=== PATIENT | male | born 1950 | race Caucasian/White ===

== ENCOUNTER 2016-11-15 09:15 | Inpatient (IN) | payer BC ==
--- NOTE | 2016-11-01 22:04 | HP ---
CC: Uvaldo Holman MD; Ernesto Ramírez MD; Lane Mattson MD ADMISSION HISTORY AND PHYSICAL: DATE OF ADMISSION: 11/15/16 ATTENDING SURGEON: Ajith Francis MD CHIEF COMPLAINT: Colon polyp. HISTORY OF PRESENT ILLNESS: This is a 65, soon to be 66-year-old male who underwent routine screeni ng colonoscopy on 09/19/[address] Ramírez. Findings at that time included a polyp at the hepatic flexure as well as one at 40 cm from the anal verge. Both of these were removed by biopsy forceps a nd pathology showed tubular adenoma. There was a third polyp estimated at 60 cm, which was biopsied , but could not be removed entirely with the colonoscope. Biopsy also showed tubular adenoma. The polyp was tattooed and the patient was sent for surgical referral. He was referred for a surgical co nsult. The patient has had other prior colonoscopies with polypectomies, the most recent being 5 to 6 years prior. He had no interval change in bowel habits and specifically denies blood per rectum or any other changes in the stool. He was seen in the office by Dr. Francis on 09/30/16. Dr. Pedro leon has discussed with him the indications for surgery, the risks, benefit, and alternatives. The pat ient elected to proceed as scheduled with laparoscopic- assisted transverse colon polypectomy; possi ble partial colectomy. The patient was seen recently by his primary, Dr. Holman, on 10/28/16 and lab work done at that time which included a CMP and CBC that were essentially within normal limits. The patient is scheduled for annual check with Dr. Mattson on 11/04/16 and he will discuss with him h is upcoming surgery. See also below for medications. PAST MEDICAL HISTORY: Chronic atrial fibrillation, hypertension, hyperlipidemia, BPH, and obesity. He denies history of AK or angina, diabetes, or personal history of bleeding or clotting disorders. No chronic respiratory problems. PAST SURGICAL HISTORY: Previous surgery is limited to vocal cord polypectomy and colonoscopies with polypectomy. CURRENT MEDICATIONS: 1. Pradaxa 150 mg b.i.d. (unless otherwise directed by Dr. Mattson, the patient's last dose preoperat ively will be the morning of 11/13/16; he has never required bridging in the past). 2. Diltiazem extended release 180 mg once daily. 3. Atorvastatin 10 mg once daily. DRUG ALLERGIES: None known. FAMILY HISTORY: Noncontributory in terms of anesthesia problems, bleeding, or clotting disorders SOCIAL HISTORY: The patient is . He is a retired donnelly. He is moderately active and wa lks with dog 2 miles daily. He is a former smoker, 1 pack per day for approximately 35 years and qu it 10 years ago. He has not had any alcohol in the past 20 years. He denies any other recreational drug use. REVIEW OF SYSTEMS: General: No recent constitutional symptoms. Weight has been stable. HEENT: N o problems reported. No history of cataracts or glaucoma. He is in the midst of crown, been to Dr. Rodriguez, has a temporary crown placed at the present time. Cardiovascular: As above. His atr ial fibrillation is intermittent. He has an appointment scheduled with Dr. Mattson for 11/04/16. Resp iratory: No acute problems reported in terms of shortness of breath and chronic cough. He is under an annual low-dose chest CT screen program and is following a stable 5 mm left upper lobe nodule. GI: No upper GI symptoms. Otherwise, per the HPI. : He is followed annually by Dr. Zamora and does have some BPH with no interval problems reported. Endocrine: No diabetes or thyroid dysfunct ion. Musculoskeletal: No problems reported. Neurological: No problems reported. PHYSICAL EXAMINATION GENERAL: A well-nourished, mildly obese male, in no acute distress. VITAL SIGNS: Height 73.5 inches, weight 242 pounds, BMI 31.5. Other vital signs per nursing. HEENT: Pupils are equal, round, and reactive. EOMs are intact. No conjunctival pallor. Oropharyn x: Teeth in good repair. No intraoral lesions. NECK: No lymphadenopathy, thyromegaly, or masses. LUNGS: Clear to auscultation. No rales or wheezes. HEART: Irregularly irregular consistent with Afib. No murmur noted. ABDOMEN: Soft and nontender to palpation. No palpable masses or organomegaly. EXTREMITIES: No edema. GENITALIA AND RECTAL: Not repeated (done recently). BACK: No spinous process or CVA tenderness. NEUROLOGIC: Grossly intact. SKIN: Warm and dry. No suspicious rashes or lesions. IMPRESSION: Transverse colon polyp. PLAN: Laparoscopic-assisted transverse colon polypectomy; possible partial colectomy. PENNY LISA [id number]/[facility] #: [id number]
[~2016-11-15 09:15] MED LIST: ERTApenem(*) 1 GM in NS 0.9% 50 ML* 50 ML IVPB SCH; Famotidine IV* 10 MG/ML 2 ML (20 mg) IV ONE; Morphine INJ* 2 MG/ML 1 ML SYRINGE IV PRN; PROCHLORPERAZINE INJ 5 MG/ML 2 ML VIAL IV PRN; Scopolamine 1.5 mg* PATCH TRANSDERM PRN; fentaNYL* 50 MCG/ML 2 ML VIAL (100 MCG VIAL) IV PRN
[2016-11-15] MEDS ORDERED: fentaNYL* 50 MCG/ML 5 ML VIAL (250 MCG VIAL) ONE (11:49)
[2016-11-15] MEDS ORDERED: KETAMINE HCL* 50 MG/ML 10 ML VIAL ONE (11:50)
[2016-11-15] MEDS ORDERED: Atracurium* 10 MG/ML 10 ML VIAL ONE (11:50)
[2016-11-15] MEDS ORDERED: Midazolam* 1 MG/ML 5 ML VIAL (5 MG) ONE (11:50)
[2016-11-15] MEDS ORDERED: Famotidine IV* 10 MG/ML 2 ML (20 mg) ONE (12:09)
[2016-11-15] MEDS ORDERED: Buffered Lidocaine 1% SYRIN* 5 ML/SYR SYRINGE ONE (12:09)
[2016-11-15] MEDS ORDERED: Bupivacaine 0.5% W/EPI SDV* 30 ML VIAL ONE (12:57)
[2016-11-15] MEDS ORDERED: Diltiazem IV* 5 MG/ML 5 ML VIAL (for loading dose/IV Push) (25 MG) ONE (13:29)
[2016-11-15] MEDS ORDERED: Propofol* 10 MG/ML 20 ML BTL IV PUSH ONE ×2 (14:39→15:43)
[2016-11-15] MEDS ORDERED: Neostigmine Methylsulfate* 2 MG/2 ML SYRINGE ONE (14:39)
[2016-11-15] MEDS ORDERED: Lidocaine 2% PF * 5 ML VIAL ONE (14:39)
[2016-11-15] MEDS ORDERED: Glycopyrrolate IV* 0.2 MG/ML 1 ML VIAL ONE (14:39)
[2016-11-15] MEDS ORDERED: Ondansetron INJ* 2 MG/ML VIAL ONE ×2 (14:39→18:19)
[2016-11-15] MEDS ORDERED: Dexamethasone IV* 4 MG/ML 1 ML (4 MG) ONE (14:39)
[2016-11-15] MEDS ORDERED: Morphine INJ* 10 MG/ML 1 ML SYRINGE ONE (14:40)
[2016-11-15] MEDS ORDERED: hydrALAZINE IV* 20 MG/ML VIAL ONE (15:32)
[2016-11-15] MEDS ORDERED: fentaNYL* 50 MCG/ML 2 ML VIAL (100 MCG VIAL) ONE ×2 (15:43→16:47)
[2016-11-15] MEDS ORDERED: Ondansetron INJ* 2 MG/ML VIAL IV PRN (15:55)
[2016-11-15] MEDS ORDERED: HYDROmorphone* 1 MG/ML 1 ML SYR IV PRN (15:55)
[2016-11-15] MEDS ORDERED: oxyCODONE/Acetamin 5/325 MG* TAB PO PRN (15:55)
[2016-11-15] MEDS ORDERED: Acetaminophen TAB* 325 MG PO PRN (15:55)
--- NOTE | 2016-11-15 16:04 | PN ---
Progress Note - Progress Note Note: Brief surgical note: Pre-op: Transverse colon mass Post-op: same Procedure: Laparoscopic assisted wedge resection of transverse colon Surgeon: Dr. trevizo Player Piano Technician: Samina Xiong Shahida: SHANTHI EBL: Minimal Catheter: Rizo to gravity, d/c'ed at PACU Drains: None Specimen: Transverse colon polyp Fluids: LR 2000 cc Findings: See dictated op note
[2016-11-15] MEDS: Atorvastatin* 10 MG TAB PO SCH (20:59)
--- NOTE | 2016-11-16 05:04 | OP ---
OPERATIVE REPORT: DATE OF OPERATION: 11/15/16 - inpatient room #332-01 DATE OF : 52 SURGEON: Ajith Francis MD GRAVITY FLOW IRRIGATOR: PENNY Madden ANESTHESIOLOGIST: Murray Dailey MD ANESTHESIA: General endotracheal. PRE-OP DIAGNOSIS: Transverse colon polyp. POST-OP DIAGNOSIS: Transverse colon polyp. OPERATIVE PROCEDURE: Laparoscopic-assisted wedge resection of transverse colon. ESTIMATED BLOOD LOSS: Minimal. IV FLUIDS: Crystalloid. SPECIMEN: Transverse colon polyp. DRAINS: None. COMPLICATIONS: None. COUNTS: Instrument, needle, and sponge counts were correct. DESCRIPTION OF PROCEDURE: The patient was brought to the operating room and placed on the table supine. Sequential compression devices were placed on both lower extremities and general anesthesia was administered. Rizo catheter was placed. He was positioned and padded appropriately. He received appropriate intravenous antibiotics. His abdomen was prepped and draped in the usual sterile fashion and time-out was performed. Local anesthetic was infiltrated into the skin and soft tissue prior to making each incision. Entry to the abdomen was through a left upper quadrant incision accommodating a 5-mm optical trocar. After accessing the peritoneal cavity, carbon dioxide was insufflated to a pressure of 15 mmHg. Under direct visualization, 12- mm trocars were placed in the supraumbilical midline, 5-mm trocar was placed in the right upper quadrant. Inspection with the laparoscope revealed a large amount of intraperitoneal fat with initially no evidence of tattooing seen along the transverse colon. Adhesions were taken down on the left side near the splenic flexure in order to identify tattooing, but none was identified in that area. The hepatic flexure was then next addressed and in this site, there appeared to be some faint tattooing visible. A third 5-mm trocar was placed in the midline in the lower abdomen and then mobilization of the hepatic flexure was undertaken, dividing the gastrocolic ligament and omentum and dissection proceeded proximally to the hepatic flexure, which was entirely taken down. The dissection then proceeded also from the ileocecal region distally in this manner completely freeing the right colon, so it was mobilized to the midline with preservation of the duodenum. Subsequently, the midline incision was extended around the umbilicus and superiorly in order to create an incision about 7 cm long. The Arnel retractor was then placed and the bowel was exteriorized. There was a palpable mass in the area of visible tattoo, which was selected as the site for the colotomy, which was created in a longitudinal direction with cautery. A polyp was immediately visible and it was excised full-thickness portion of the colon wall wedging it out. To close the colotomy, two firings of the TA-60 blue stapler were used pointing them so as not to impinge upon the lumen. The staple lines were oversewn with 3-0 Polysorb and the crossing staple line was oversewn with 3-0 silk as well to imbricate it. Having assured hemostasis, the colon was returned to the abdominal cavity and the inspection revealed hemostasis to be excellent. The midline wound was closed with #1 Polysorb running and subcutaneous tissues were irrigated. All the skin incisions were closed with ricco and dressings were applied. The patient tolerated this procedure well, was extubated, and then transferred to the recovery room in stable condition. CC: Uvaldo Holman MD; Ernesto Ramírez MD; Lane Mattson MD* [id number]/[facility] #: [id number] [facility]
[2016-11-16 06:09] LABS: Hematocrit 46 % (42-52); Hemoglobin 15.5 g/dl (14.0-18.0); Mean Corpuscular HGB Conc 34 g/dl (31-36); Mean Corpuscular Hemoglobin 30 pg (27-31); Mean Corpuscular Volume 88 fL (80-94); Mean Platelet Volume 8 um3 (7.4-10.4); Red Blood Count 5.21 10^6/ul (4.0-5.4); Red Cell Distribution Width 13 % (10.5-15); White Blood Count 14.6 10^3/ul (3.5-10.8)
[2016-11-16 06:22] LABS: Calcium 9.1 mg/dL (8.6-10.3); EGFR African American 116.3 (>60); EGFR Non-African American 90.5 (>60); Potassium 3.9 mmol/L (3.5-5.0)
[2016-11-16] MEDS: Diltiazem CD CAP* 180 MG PO SCH (09:30)
--- NOTE | 2016-11-16 10:01 | SURGPN ---
Subjective - Introduction -: Doing very well, minimal pain, did not take any pain meds overnight. Nausea and vomiting last night, no nausea this AM. Ambulatory, tolerating clear liquids. No flatus yet. - Medications -: Active Medications Generic Name Dose Route Start Last Admin Trade Name Freq PRN Reason Stop Dose Admin Acetaminophen 650 mg 11/15/16 15:55 Tylenol Tab* PO Q4H PRN Pain Or Temperature >101 F Atorvastatin Calcium 10 mg 11/15/16 21:00 11/15/16 20:59 Lipitor* PO 10 mg 2100 JEFFERSON Administration Diltiazem HCl 180 mg 11/16/16 09:00 11/16/16 09:30 Cardizem Cd Cap* PO 180 mg QAM JEFFERSON Administration Heparin Sodium (Porcine) 5,000 units 11/16/16 16:00 Heparin Vial(*) SUBCUT Q8HR JEFFERSON Hydromorphone HCl 0.5 mg 11/15/16 15:55 Dilaudid Iv* IV Q1H PRN PAIN - SEVERE Lactated Ringer's 1,000 mls @ 125 mls/hr 11/15/16 16:00 11/16/16 02:23 Lactated Ringers 1000 Ml Bag* IV 125 mls/hr .per rate JEFFERSON Administration Ondansetron HCl 4 mg 11/15/16 15:55 Zofran Inj* IV Q4H PRN NAUSEA/VOMITING Oxycodone/Acetaminophen 2 tab 11/15/16 15:55 Percocet 5/325 Tab* PO Q6H PRN PAIN Pharmacy Profile Note 1 note 11/18/16 08:39 Scopolomine Patch Remove* PATCH OFF 11/18/16 08:40 Q72H ONE Objective - Objective -: Awake and alert, sitting in chair, appears comfortable and in NAD. - Intake and Output -: Intake & Output 11/14/16 11/15/16 11/16/16 11/17/16 06:59 06:59 06:59 06:59 Intake Total 4086 Output Total 1250 Balance 2836 Weight 247 lb Intake: IV Fluids 3646 LR 3596 NS 50ML, Ertopenin 1G 50 Oral 440 Output: Urine 600 Rizo 650 Surgical Physical Exam - Comments -: VSS, afebrile Lungs CTA bilat. Heart RRR, no murmurs. Abdomen soft, non-tender and mildly distended. Dressing clean and dry. Bowel sounds hypoactive throughout. Ext. no edema Labs noted Assessment and Plan - Assessment -: A 66 y/o male, POD#1, s/p laparoscopic assisted wedge resection of transverse colon, doing well. - Plan Additional Comments: Ambulate as tolerated Keep on clear liquids diet for now. DVT prophylaxis, start Heparin this afternoon. Post-op ileus, await bowel functions.
[2016-11-16] MEDS ORDERED: Heparin VIAL(*) 5000 UNITS/ML VIAL (FIVE THOUSAND) SUBCUT SCH (16:00)
[2016-11-16] MEDS: Atorvastatin* 10 MG TAB PO SCH (20:47)
[2016-11-16] MEDS: Heparin VIAL(*) 5000 UNITS/ML VIAL (FIVE THOUSAND) SUBCUT SCH (23:26)
[2016-11-17] MEDS: Diltiazem CD CAP* 180 MG PO SCH (07:58)
[2016-11-17] MEDS: Heparin VIAL(*) 5000 UNITS/ML VIAL (FIVE THOUSAND) SUBCUT SCH (07:58)
[2016-11-17 08:24] VITALS: BP 140/78
--- NOTE | 2016-11-17 10:31 | PN ---
Progress Note - Progress Note SOAP: Subjective: Reports doing very well. Tolerating full liquids, passing flatus and had a small BM last night. Denies any pain, N/V, fever or chills. Would like to go home today. Objective: Awake and alert, changing his cloth, very comfortable. VSS, afebrile Lungs CTA bilat. Heart RRR, no mrmurs. Abdomen soft, NT/ND. Incisions C/D/I. I/O noted Assessment: A 66 y/o male, POD#2, s/p laparoscopic assisted wedge resection of transverse colon for a benign tubular adenoma. Plan: Patient is doing very well, discussed path report with him. Will advance diet gradually at home. Plan to d/c to home later this AM F/U next week in office for stable removal.
--- NOTE | 2016-11-17 23:32 | DS ---
DISCHARGE SUMMARY: DATE OF ADMISSION: 11/15/16 DATE OF DISCHARGE: 11/17/16 PATIENT OF: Ajith Francis MD ADMISSION DIAGNOSIS: A colon polyp. DISCHARGE DIAGNOSIS: A colon polyp. ADMITTING PHYSICIAN: Ajith Francis MD CONSULTATIONS: None. PROCEDURE: Laparoscopic-assisted wedge resection of the transverse colon on . HISTORY OF PRESENT ILLNESS: Mr. Bran is a pleasant 66-year-old gentleman, who was seen in the office earlier this month to discuss a removal of a large polyp that was found on a colonoscopy performed by Dr. Ramírez back on . The patient, apparently, has history of colonic polyps on several colonoscopies he had in the past. His most recent colonoscopy performed in August by Dr. Ramírez included a polyp at the hepatic flexure, possibly proximal transverse colon that was found to be large sized. Original biopsies from that polyp showed a tubular adenoma, but given the fact that the polyp was not entirely removed, the patient was referred to our office to discuss possible removal of the polyp via colectomy. The patient denied any pain, bleeding per rectum, or any other associated symptoms. He was seen by Dr. Francis earlier this month and discussed the indication for surgery. He was scheduled to do a laparoscopic-assisted transverse colon polypectomy, possible partial colectomy to be performed on a later date. HOSPITAL COURSE: The patient was admitted on the same-day in anticipation for surgery. He was taken to the operating room on 11/15/16, where he underwent a laparoscopic-assisted wedge resection of the transverse colon for removal of a benign polyp. After the surgery, he was taken to the recovery room in a stable condition. His postoperative period was essentially uneventful. He was ambulatory out of bed that evening and denied any significant pain. He had 1 episode of nausea and some emesis on the night of surgery, but denied any further nausea or vomiting after that. He started on clear liquid diet that he tolerated well and his diet eventually was advanced to full liquid on the following morning. He had laboratory workup on the next morning that revealed a stable hemoglobin and hematocrit as well as electrolytes. He continued to improve on the second day postoperatively and he was in a stable condition. On exam, he was virtually pain free and he started passing flatus on the second day postoperatively. He also had a small bowel movement for which, his diet was advanced gradually. He continued to improve and on the second day postoperatively, he was ready to be discharged home. All the discharge instruction was given to him, both verbally and in written format. He was advised to resume all his home medication including Pradaxa to be taken starting on the evening of 11/17/16. He will be seen in the office next week for staple removal. I also discussed with him the pathology report that revealed benign tubular adenoma with a clear margin taken from the transverse colon. DISCHARGE MEDICATIONS: Include: 1. Pradaxa 150 mg b.i.d. 2. Diltiazem 180 mg once daily. 3. Atorvastatin 10 mg once daily. 4. Percocet 5/325 one tablet or two tablets as needed every 6 hours for pain. PROBLEM LIST: Benign tubular adenoma of the transverse colon, status post a laparoscopic-assisted wedge resection of the transverse colon on 11/15/16. PENNY DIAMOND CC: Ajith Francis MD; Uvaldo Holman MD; Ernesto Ramírez MD; Lane Mattson MD* [id number]/[facility] #: [id number] [facility]
[2016-11-18] MEDS ORDERED: Scopolomine PATCH Remove* 1 NOTE MISC PATCH OFF ONE (08:39)
== END 2016-11-17 11:12 | disposition home or self-care (01) | DRG 221 ==
LOC: AA 12:10 → SSU 15:55
PROVIDERS: ADMIT Surgery; ATTEND Surgery
PROC: 0DBL4ZZ Excision of Transverse Colon, Percutaneous Endoscopic Approach (ICD-10-PCS; principal; 2016-11-15 14:15)
DX: D12.3 Benign neoplasm of transverse colon (principal); I48.2 Chronic atrial fibrillation; I10 Essential (primary) hypertension; E78.5 Hyperlipidemia, unspecified; N40.0 Benign prostatic hyperplasia without lower urinary tract symptoms; E66.9 Obesity, unspecified; Z87.891 Personal history of nicotine dependence; Z68.31 Body mass index [BMI] 31.0-31.9, adult; Z79.01 Long term (current) use of anticoagulants
CPT/HCPCS: 36415; 80048; 85025; 88305; A9270-GY; J0360; J1100; J1335; J1644; J2250; J2270; J2405; J2704; J3010